=== PATIENT | female | born 1980 | race Asian ===

== ENCOUNTER 2018-02-13 09:56 | Inpatient (IN) | payer BC ==
[2018-09-04] MEDS ORDERED: Promethazine HCl 25 MG/ML VIAL IM PRN (18:56)
[2018-09-04] MEDS ORDERED: Acetaminophen 500 MG TAB PO PRN (18:56)
[2018-09-04] MEDS ORDERED: NS / Oxytocin 40 units/1000ml 1,000 ML IV PRN (18:56)
[2018-09-04] MEDS ORDERED: Ondansetron PF 4 MG/2 ML Vial IVP PRN (18:56)
[2018-09-04] MEDS ORDERED: hydrALAZINE 20 MG/ML VIAL SLOW IVP PRN (18:56)
[2018-09-04] MEDS ORDERED: Butorphanol Tartrate 1 MG/ML VIAL SLOW IVP PRN (18:56)
[2018-09-04] MEDS ORDERED: Misoprostol 200 MCG TAB PR PRN (18:56)
[2018-09-04] MEDS ORDERED: Lidocaine 1% (PF) 30 ML VIAL SC PRN (18:56)
[2018-09-04] MEDS ORDERED: Misoprostol 100 MCG TAB VAG SCH (19:00)
[2018-09-04] MEDS ORDERED: Lactated Ringer's 1,000 ML IV SCH (19:00)
[2018-09-04] MEDS ORDERED: NS w/ Oxytocin 10 units 500 ML IV SCH (19:00)
[2018-09-04] MEDS ORDERED: Misoprostol 100 MCG TAB ONE (23:42)
[2018-09-05] MEDS ORDERED: Lidocaine 1% (PF) 30 ML VIAL ONE (07:28)
[2018-09-05 09:45] VITALS: BMI 27.2
[2018-09-05 11:20] LABS: HBSAg Index 0.26 S/CO (0-0.99); Hep B Surf Ag NonReactive S/CO (NonReactive); Syphilis Antibody Nonreactive (Nonreactive); Syphilis Antibody Index 0.04 S/CO (<1.00 Non-Reactive)
[2018-09-05] MEDS ORDERED: Benzocaine-Menthol 82.5 ML CAN TOP PRN (12:18)
[2018-09-05] MEDS ORDERED: Bisacodyl 10 MG SUPP PR PRN (12:18)
[2018-09-05] MEDS ORDERED: Lanolin Ointment 7 GM TUBE TOP PRN (12:18)
[2018-09-05] MEDS ORDERED: Adacel (T-DAP) 0.5 ML SYRINGE IM ONE (12:18)
[2018-09-05] MEDS ORDERED: diphenhydrAMINE 25 MG CAP PO PRN (12:18)
[2018-09-05] MEDS ORDERED: traMADol HCl 50 MG TAB PO PRN (12:18)
[2018-09-05] MEDS ORDERED: Milk Of Magnesia 30 ML UDCUP PO PRN (12:18)
[2018-09-05] MEDS ORDERED: hydrALAZINE 20 MG/ML VIAL SLOW IVP PRN (12:18)
--- NOTE | 2018-09-05 12:20 | PDOC.OPDEL ---
OB Operative/Delivery Note Delivery Dr/Surgeon: Duyen Pre-Delivery Diagnosis: elective induction Procedure/Post Delivery Dx: operative vaginal delivery Weeks gestation: 39 Anesthesia: local - Findings A Sex: male - 1 min: 8 - 5 min: 9 - Additional Findings/Plan Placenta delivered: spontaneous Repaired Obstetrical Laceration: 2nd degree (Outlet VE assisted delivery. One contraction/pushing episode with easy deliver. Nuchal cord and body cord reduced. 8/9...)
[2018-09-05] MEDS ORDERED: NS / Oxytocin 40 units/1000ml 1,000 ML IV SCH (12:30)
[2018-09-05] MEDS ORDERED: Ibuprofen 800 MG TAB PO SCH (12:45)
[2018-09-05] MEDS ORDERED: Ibuprofen 800 MG TAB ONE (12:58)
[2018-09-05] MEDS: Ibuprofen 800 MG TAB PO SCH ×2 (14:30→21:14)
[2018-09-05] MEDS: Ferrous Sulfate 325 MG TAB PO SCH (16:34)
[2018-09-05 17:55] LABS: Hemoglobin 13.7 g/dL (12.0-16.0); Red Blood Cell (RBC) Count 4.64 mill/uL (4.20-5.40); White Blood Cell (WBC) Count 9.5 thou/uL (4.8-10.8)
[2018-09-05 17:56] LABS: Mean Corpuscular HGB CONC 33.2 g/dL (32.0-36.0); Mean Corpuscular Hemoglobin 29.6 pg (27.0-31.0); Mean Corpuscular Volume 89.1 fL (78.0-98.0); Mean Platelet Volume 8.6 fL (7.4-10.4); Platelet Count 175 thou/uL (130-400)
[2018-09-05 19:58] LABS: HIV (1/2) Antibody/Antigen NonReactive (NonReactive); HIV 1/2 INDEX 0.13 S/CO (<1.00)
[2018-09-05] MEDS: Docusate Calcium (SURFAK) 240 MG CAP PO SCH (21:14)
[2018-09-06] MEDS: Ibuprofen 800 MG TAB PO SCH ×3 (06:16→21:44)
--- NOTE | 2018-09-06 08:16 | PDOC.PP ---
Post Progress Note Post Day #: 1 PO intake tolerated: yes Flatus: yes Ambulation: yes Vital Signs (12 hours) Temp Pulse Resp BP 09/06/18 04:00 97.8 F 71 20 93/51 L 09/06/18 00:00 98.3 F 75 20 116/55 L Weight Weight 174 lb - Physical Examination Abdominal: + bowel sounds, no distention, appropriately TTP Result Diagrams: 09/04/18 23:34 Additional Labs: Post Labs Blood Type A POSITIVE 09/04/18 22:00 Hep Bs Antigen NonReactive S/CO (NonReactive) 09/04/18 23:35 - Assessment/Plan post day 1..Plan for discharge in AM.. post 6 weeks.
[2018-09-06] MEDS: Prenatal Vitamin 1 TAB PO SCH (09:37)
[2018-09-06] MEDS: Docusate Calcium (SURFAK) 240 MG CAP PO SCH ×2 (09:37→21:44)
[2018-09-06] MEDS: Ferrous Sulfate 325 MG TAB PO SCH ×2 (12:36→21:43)
[2018-09-07] MEDS: Ibuprofen 800 MG TAB PO SCH ×2 (06:29→14:01)
[2018-09-07 08:06] VITALS: BP 102/57; TEMP 98.3
--- NOTE | 2018-09-07 08:14 | PDOC.PP ---
Post Progress Note Post Day #: 2 PO intake tolerated: yes Flatus: yes Ambulation: yes Vital Signs (12 hours) Temp Pulse Resp BP Pulse Ox 09/07/18 08:06 98.3 F 69 15 102/57 L 97 09/07/18 00:28 97.8 F 78 18 104/58 L 09/06/18 20:23 97.8 F 76 18 113/57 L 97 Weight Weight 174 lb - Physical Examination General: NAD Respiratory: non-labored breathing Abdominal: no distention, appropriately TTP Fundus firm & at: umb-2 Extremities: negative homans (B) Neurological: no gross focal deficits Psychiatric: normal affect Result Diagrams: 09/04/18 23:34 Additional Labs: Post Labs Blood Type A POSITIVE 09/04/18 22:00 Hep Bs Antigen NonReactive S/CO (NonReactive) 09/04/18 23:35 - Assessment/Plan PPD2 s/p FAVD VSSAF Doing well lochia < menses, pain controlled Rh pos RImm DC home FU 6 w
[2018-09-07] MEDS: Docusate Calcium (SURFAK) 240 MG CAP PO SCH (08:32)
[2018-09-07] MEDS: Prenatal Vitamin 1 TAB PO SCH (08:32)
[2018-09-07] MEDS: Ferrous Sulfate 325 MG TAB PO SCH (08:32)
== END 2018-09-07 17:00 | disposition home or self-care (01) | DRG 807 ==
LOC: EDSTATUS 14:28 → L&D 09-04 07:45 → 3SW 09-05 14:00
PROVIDERS: ADMIT Obstetrics & Gynecology; ATTEND Obstetrics & Gynecology
PROC: 10E0XZZ Delivery of Products of Conception, External Approach (ICD-10-PCS; principal; 2018-09-04)
PROC: 0KQM0ZZ Repair Perineum Muscle, Open Approach (ICD-10-PCS; 2018-09-04)
DX: O69.81X0 Labor and delivery complicated by cord around neck, without compression, not applicable or unspecified (principal); Z37.0 Single live birth; O70.1 Second degree perineal laceration during delivery; Z3A.39 39 weeks gestation of pregnancy
CPT/HCPCS: 85027; 86780; 86850; 86900; 86901; 87340; 87389; J2001